=== PATIENT | female | born 1990 | race Two or more races ===

== ENCOUNTER 2025-06-13 06:13 | Emergency (ER) | payer OTHER ==
[~2025-06-13] VITALS: Ht 167.6 cm; Wt 93.0 kg
[2025-06-13] MEDS ORDERED: FAMOTIDINE/PF 20 MG/2 ML VIAL ONE (07:39)
[2025-06-13] MEDS ORDERED: ONDANSETRON HCL 2 MG/ML VIAL ONE (07:39)
[2025-06-13] MEDS ORDERED: 0.9 % SODIUM CHLORIDE 1,000 ML IV ONE (07:45)
[2025-06-13] MEDS ORDERED: ONDANSETRON HCL 2 MG/ML VIAL IV ONE (07:45)
[2025-06-13] MEDS ORDERED: FAMOtidine 10 MG/ML (4ML VIAL) IV ONE (07:45)
[2025-06-13 08:07] LABS: BASO % 0.1 % (0.1-1.2); EOS # 0.01 (0.04-0.54); EOS % 0.1 % (0.7-7.0); LYMPH # 0.43 (1.18-3.74); LYMPH % 3.8 % (19.3-53.1); MEAN PLATELET VOLUME 9.50 fl (9.4-12.4); MONO # 0.29 (0.24-0.82); MONO % 2.6 % (4.7-12.5); NEUT # 10.54 (1.56-6.13); NEUT % 93.0 % (34.0-71.1); RED CELL DISTRIBUTION WIDTH 13.9 % (11.6-14.4)
[2025-06-13 09:22] LABS: COVID-19 AG NEGATIVE (NEGATIVE)
[2025-06-13 09:31] LABS: ALT/SGPT 13.0 U/L (12-78); AST/SGOT 10.0 U/L (15-37); BILIRUBIN TOTAL 0.63 mg/dL (0.3-1.2); BILIRUBIN,CONJUGATED 0.26 mg/dL (0.0-0.2); BUN CREA RATIO 21.0 (7.0-25.0); CREATININE SERUM 0.42 mg/dL (0.55-1.02); GFR 174.85; GLOBULINA 3.3 G/DL (2.4-3.5); GLUCOSE FASTING 89.0 mg/dL (65-100); OSMOLALITY SERUM 281.0 MOSM/KG (275-295)
[2025-06-13] MEDS ORDERED: PROTONIX40 MG PO (10:12)
[2025-06-13] MEDS ORDERED: ZOFRAN8 MG PO (10:12)
[2025-06-13] MEDS ORDERED: PROBIOTIC1 EAC2 PO (10:13)
== END 2025-06-13 10:57 | disposition home or self-care (01) ==
LOC: ER 06:14
PROVIDERS: General Practice
DX: O26.892 Other specified pregnancy related conditions, second trimester (principal); Z3A.21 21 weeks gestation of pregnancy; R11.10 Vomiting, unspecified; A08.8 Other specified intestinal infections; Z20.822 Contact with and (suspected) exposure to COVID-19